=== PATIENT | female | born 1960 | race Caucasian/White ===

== ENCOUNTER → 2023-09-26 15:50 | Outpatient (REF) | payer MEDICARE, SELFPAY ==
[2023-09-26 16:44] LABS: Blood Urea Nitrogen 25 mg/dl (7-17)
== END ==
LOC: REG 15:50
PROVIDERS: ATTENDING PHYSICIAN Physical Medicine & Rehabilitation; FAMILY PHYSICIAN Nurse Practitioner
DX: M54.12 Radiculopathy, cervical region (principal)
CPT/HCPCS: 36415; 82565; 84520

== ENCOUNTER → 2024-11-17 15:44 | Outpatient (REF) | payer MEDICARE, SELFPAY | LOC: DHSLP 15:44 | PROVIDERS: ATTENDING PHYSICIAN Nurse Practitioner | DX: G47.33 Obstructive sleep apnea (adult) (pediatric) (principal); I11.0 Hypertensive heart disease with heart failure; M79.7 Fibromyalgia; E66.9 Obesity, unspecified; R06.83 Snoring; M35.1 Other overlap syndromes; Z68.34 Body mass index [BMI] 34.0-34.9, adult | CPT/HCPCS: 95800 ==